=== PATIENT | female | born 1995 | race Caucasian/White ===

== ENCOUNTER → 2019-07-08 | Outpatient (CLI) | payer BC, SELFPAY | PROVIDERS: Family Provider Family Medicine; Visit Provider Family Medicine | DX: Z34.82 Encounter for supervision of other normal pregnancy, second trimester (principal) | CPT/HCPCS: 76805 ==

== ENCOUNTER 2019-07-17 13:17 | Outpatient (CLI) | payer BC, SELFPAY ==
--- NOTE | 2019-07-17 13:20 | MR_ITS ---
WS: [id number] MRI HEAD WITHOUT CONTRAST WITH ATTENTION TO THE INTERNAL AUDITORY CANALS TECHNIQUE: Sagittal T1, T2 axial, T2 axial flair, axial susceptibility weighted imaging, axial diffus ion weighted images, and coronal T2 images were obtained. Pre T1 axial and coronal images. ADC and FS PGR images. Axial fiesta imaging. CLINICAL INFORMATION: ENCOUNTER FOR EXAM OF EARS AND HEARING W/O ABNORMAL FINDINGS COMPARISON: None. FINDINGS: Images in the frontal lobes are degraded due to dental artifact. No evidence of restricted diffusion to suggest acute ischemia. Ventricular system and basal cisterns are patent. No suspicious intracrani al signal abnormalities. Normal krause-white differentiation. Normal posterior fossa. Normal vascular f low voids at the skull base. No extra axial fluid collections. Paranasal sinuses and mastoid air cell s appear well aerated. No hemosiderin on susceptibly weighted images. Proximal 7th and 8th cranial nerves are normal in appearance. Normal trigeminal nerve root entry zone s. Temporal lobes and hippocampal formations appear normal. Normal optic chiasm and pituitary infundi bulum. Normal sella. MR/MR iac's wo con [id number] IMPRESSION: 1. No evidence of restricted diffusion to suggest acute ischemia. 2. No suspicious intracranial signal abnormalities. Normal krause-white differen tiation. 3. Proximal 7th and 8th cranial nerves are normal in appearance. No evidence o f IAC or CP angle mass. Normal trigeminal nerve root entry zones. 4. Mastoid air cells and paranasal sinuses are well aerated.
== END 2019-07-17 13:18 | disposition home or self-care (01) ==
LOC: RADSHAW 13:17
PROVIDERS: Family Provider Family Medicine; PCP Family Medicine; Visit Provider Specialist
DX: Z01.10 Encounter for examination of ears and hearing without abnormal findings (principal); R42 Dizziness and giddiness
CPT/HCPCS: 70551

== ENCOUNTER 2019-10-30 12:50 | Outpatient (CLI) | payer BC, SELFPAY ==
--- NOTE | 2019-10-30 | US_ITS ---
WS: [id number] LIMITED OBSTETRICAL ULTRASOUND HISTORY: SMALL FOR GESTATIONAL AGE COMPARISON: 07/08/2019, 04/19/2019 Presentation: Cephalic. Cervix: Obscured by the head. Placenta: Fundal and RIGHT with no previa or abruption. Grade: 2 HEART: FHR of 153 BPM. measurements: BPD = 8.3 cm = 33w4d HC = 31.2 cm = 34w6d AC = 31.1 cm = 35w0d FL = 6.8 cm = 35w1d DORON: 17.0 cm EFW: 2539 g; 69th %. AGA by ultrasound: 34w5d DONNA by ultrasound: 12/06/2019 Measurements are internally concordant. Appropriate growth since the first trimester ultrasound. No g rowth asymmetry. US/US OB limited [id number] IMPRESSION: 1. Single intrauterine gestation of 34 weeks 5 days with an EDC of 12/06/2019. Appropriate growth since the first trimester ultrasound. No growth asymmetry of any significance. 2. Estimated weight at the 69th percentile. 3. Normal amniotic fluid. 4. Grade 2 placenta.
== END 2019-10-30 12:51 | disposition home or self-care (01) ==
LOC: RADWPI 12:54
PROVIDERS: Family Provider Family Medicine; PCP Family Medicine; Visit Provider Family Medicine
DX: Z36.4 Encounter for antenatal screening for fetal growth retardation (principal); Z3A.34 34 weeks gestation of pregnancy
CPT/HCPCS: 76815

== ENCOUNTER 2019-11-27 15:10 | Outpatient (CLI) | payer BC, SELFPAY ==
--- NOTE | 2019-11-27 15:16 | US_ITS ---
WS: [id number] ULTRASOUND OB LIMITED TECHNIQUE: Limited ultrasound examination of the fetus. CLINICAL INFORMATION: SMALL FOR AGE; PT HAS BEEN IN ER WAITING AREA; WAS ON TIME COMPARISON: October 30, 2019 FINDINGS: Single interuterine gestation. Placental location is right fundal. Placenta grade: 2 heart rate 153 BPM. DORON 6.8 cm less than the 5th percentile AGA by ultrasound 36 weeks 3 days Estimated delivery by ultrasound December 22, 2019 Biophysical profile 6 out of 8. breathin movement: 2 tone: 2 Amniotic fluid: 2 Impression 1. BPP 6 out of 8. Breathing not visualized. 2. growth parameters at the lower end of the range less than the 10th percentile. Fetus small for dates. 3. weight 6 lbs. 4 oz. 4. Placenta grade 2 5. DORON less than the 5th percentile
--- NOTE | 2019-11-28 15:23 | PM.HP ---
Providers/Chief Complaint Primary Care Provider: Benson Montes MD Chief Complaint: History of Present Illness Scott Mackenzie is a 24 year old at 38.4 weeks gestation by 6-week ultrasound inconsistent with LMP. Her is complicated by positive thyroglobulin antibodies, recent miscarriage, rubella nonimmune, vertigo. The patient was seen in my office on 11/26/2019 and was noted to be measuring small for gestational age. For this reason an ultrasound was set up for further evaluation. She had an ultrasound on 11/27/2019 and was noted to have an DORON of 6 with a biophysical profile of 6/8 and growth measurements that were less than the 2nd percentile. When I was notified of this on 11/28/2019, I had the patient present to OB triage for further evaluation. A repeat biophysical profile was 8 out of 8 with an amniotic fluid level of 9. However the estimated weight continued to be measuring small with biparietal diameter less than the 2nd percentile, head circumference less than 2nd percentile, and abdominal circumference at the 4th percentile. These were all consistent with only 1 weeks growth in comparison to an ultrasound done on October 30, 2019. Due to this, there are concerns for intrauterine growth restriction and I discussed this with the patient and her who are in agreement to proceed with induction of labor secondary to this. The patient was 2 cm dilated, 70% effaced and -1 station in the office on 11/26/2019. Patient currently denies chest pains, shortness of breath, fever, dyspnea, cough, nausea, vomiting, diarrhea, constipation, dysuria, vaginal bleeding, leakage of fluid, contractions. PFSH Acute PFSH: Medical History (Updated 11/28/19 @ 15:31 by Benson Montes MD) Thyroglobulin antibody positive Surgical History (Updated 11/28/19 @ 15:28 by Benson Montes MD) H/O breast augmentation Family History (Updated 11/28/19 @ 15:29 by Benson Montes MD) Mother Thyroid disease Social History (Updated 11/28/19 @ 15:30 by Benson Montes MD) Smoking and tobacco status: never smoked Alcohol intake: former Former alcohol use details: Occasional alcohol outside of Substance/Drug Use: never Physical Exam Narrative: EXAM NARRATIVE: General: Alert and oriented x3 Eyes: Pupils equal round and reactive to light and accommodation Mouth: Mucous membranes moist, pharynx non-erythematous Cardiac: Regular rate and rhythm without murmurs Lungs: Clear to auscultation bilaterally without wheezes, crackles or rhonchi Abdomen: Soft, non-tender, fundus measuring small for gestational age Extremities: Trace edema in the bilateral lower extremities A&P Assessment and plan (1) Intrauterine : Status: Acute (2) Intrauterine growth restriction (IUGR) affecting care of mother, third trimester, single gestation: Status: Acute Additional A&P Information I had a discussion with the patient regarding the findings that there is poor growth from comparison of ultrasound done on 10/29/2021 the ultrasound done on 11/28/2019. The growth is concerning for intrauterine growth restriction. Because of this and the patient's current gestational age of 38.4 weeks, we will proceed with induction of labor with IV Pitocin. I discussed with the patient and her regarding the possible benefits versus risks of proceeding with induction versus and they are in agreement with induction of labor at this time. All questions were answered. heart tones are currently in the mid 150s with moderate variability and good accelerations with a category 1 tracing.. The patient is having occasional contractions that are not regular. The patient is GBS negative. The patient will be started on IV Pitocin for induction. She may have a laboring epidural once she reaches 3 cm dilation. Proceed with routine care. Attestations Medical Necessity Statement*: The patient will be here for greater than 2 midnights due to routine intrapartum and management of labor and delivery. Coding Level of Care Code Acute Installer Interior Assemblies for Navin Peck Diagnoses Intrauterine Z34.90 Intrauterine growth restriction (IUGR) affecting care of mother, third trimester, single gestation O36.5930
== END 2019-11-27 15:11 | disposition home or self-care (01) ==
LOC: RAD 15:13
PROVIDERS: PCP Family Medicine; Visit Provider Family Medicine
DX: Z36.4 Encounter for antenatal screening for fetal growth retardation (principal); Z3A.36 36 weeks gestation of pregnancy; O36.5930 Maternal care for other known or suspected poor fetal growth, third trimester, not applicable or unspecified
CPT/HCPCS: 12345; 76816; 76819

== ENCOUNTER 2019-11-28 13:21 | Inpatient (IN) | payer BC, SELFPAY ==
[2019-11-28] VITALS (62 sets, daily range): BP systolic 0–149; BP diastolic 0–105; PULSE 72–102; RESP 18; TEMP 36.6–37.1; O2SAT 90–98; BMI 25.4
--- NOTE | 2019-11-28 13:27 | US_ITS ---
WS: [id number] ULTRASOUND OB LIMITED TECHNIQUE: Limited ultrasound examination of the fetus. CLINICAL INFORMATION: no growth, movement COMPARISON: None. FINDINGS: Single interuterine gestation. Placental location is right fundal. Placenta grade: 2 heart rate 144 BPM. DORON 9.6 cm greater than the 5th percentile for gestational age Biophysical profile 8 out of 8. breathin movement: 2 tone: 2 Amniotic fluid: 2 IMPRESSION 1. Normal biophysical profile 8 out of 8 2. DORON greater than the 5th percentile for gestational age 3. Fetus small for dates.
[2019-11-28] MEDS: dextrose 5%-lactated ringers 1,000 ML 125 ML IV (15:43)
[2019-11-28] MEDS: oxytocin 30 UNIT/500 ML BAG 4 UNIT IV (15:44)
[2019-11-28 16:01] LABS: Basophils # 0.1 10^3/uL (0.0-0.1); Basophils % 0.5 %; Eosinophils # 0.1 10^3/uL (0.0-0.8); Eosinophils % 0.9 %; Hematocrit 41.9 % (37.0-47.0); Hemoglobin 14.2 g/dL (11.5-15.3); Lymphocytes # 1.8 10^3/uL (0.8-4.8); Lymphocytes % 16.8 %; Mean Corpuscular HGB Conc 33.9 g/dL (30.0-36.0); Mean Corpuscular Hemoglobin 30.2 pg (28.0-34.0); Mean Corpuscular Volume 89.1 fL (81-99); Monocytes # 0.7 10^3/uL (0.2-0.9); Monocytes % 6.8 %; Neutrophils # 7.9 10^3/uL (1.8-7.7); Nucleated Red Blood Cells % 0 %; Platelet Count 263 10^3/cmm (130-400); Red Cell Distribution Width 12.7 % (12.1-15.1); White Blood Count 10.7 10^3/uL (4.0-10.0)
[2019-11-28] MEDS: lactated ringers 1,000 ML 999 ML IV (19:20)
--- NOTE | 2019-11-28 20:20 | ANES.PREANE2 ---
Pre-Anesthetic Assessment Pre-Anesthetic Assessment: Height/Weight: Height 1.68 m Weight 71.668 kg Temp Pulse BP Pulse Ox 98.8 F 88 133/75 90 11/28/19 17:00 11/28/19 20:48 11/28/19 20:48 11/28/19 20:47 Preop Diagnosis: IUP Familial anesthetic complications: denies Was Beta Prateek taken within 24 hours: N/A Social: Social History: No alcohol and No tobacco Exam: Pre-Anes Outpt Exam: alert, oriented x 3, clear to auscultation bilaterally and regular rate & rhythm Airway: Submandibular: WNL Cervical ROM: WNL MP: 1 History/ROS: No significant history except as noted Pulmonary: Pulmonary: None reported CV/HEM: CV/HEM: HTN (PIH) : : None reported Hepatic: Hepatic: None reported GI: GI: None reported Metabolic: Metabolic: None reported Musc/skel: Musc/skel: None reported Neuropsych: Neuropsych: None reported Anesthetic Plan: ASA status: 1 Anesthesia: Anesthesia Evaluation Risk of > 500 ml blood loss (7ml/kg in children): No Meds/Allergies Current Medications: Current Medications Generic Name Dose Route Start Last Admin Trade Name Freq PRN Reason Stop Dose Admin Dextrose/Lactated Ringer's 1,000 mls @ 125 m ls/hr 11/28/19 15:00 11/28/19 15:43 Dextrose 5%-Lact ated Ringers IV 125 mls/hr .Q8H ROSA Administration Oxytocin 30 unit in 500 ml s @ 4 mls/hr 11/28/19 15:00 11/28/19 16:45 Pitocin IV 12 milliunit/min .Q24H ROSA 12 mls/hr Titration Protocol 4 MILLIUNIT/MIN PFSH Anesthesia PFSH: Medical History (Updated 11/28/19 @ 15:31 by Benson Montes MD) Thyroglobulin antibody positive Surgical History (Updated 11/28/19 @ 15:28 by Benson Montes MD) H/O breast augmentation Family History (Updated 11/28/19 @ 15:29 by Benson Montes MD) Mother Thyroid disease Social History (Updated 11/28/19 @ 15:30 by Benson Montes MD) Smoking and tobacco status: never smoked Alcohol intake: former Former alcohol use details: Occasional alcohol outside of Substance/Drug Use: never Female Reproductive History: : 2 Data Anesthesia CBC & Chem 7: 11/28/19 15:25 Other Labs: Laboratory Results - last 48 hr 11/28/19 15:25 WBC 10.7 H RBC 4.70 Hgb 14.2 Hct 41.9 MCV 89.1 MCH 30.2 MCHC 33.9 RDW 12.7 Plt Count 263 MPV 10.0 Neut % (Auto) 74.0 Lymph % (Auto) 16.8 Collin % (Auto) 6.8 Eos % (Auto) 0.9 Baso % (Auto) 0.5 Neut # (Auto) 7.9 H Lymph # (Auto) 1.8 Collin # (Auto) 0.7 Eos # (Auto) 0.1 Baso # (Auto) 0.1 Nucleated RBC % (auto) 0 Nucleated RBCs # 0.0 Cardiac Studies: No Data to Display
--- NOTE | 2019-11-28 20:53 | ANES.PROC ---
Anesthesia Procedures Procedure/Date: 11/28/19 Epidural: Time Out Performed: Yes Consents Signed: Procedure Consent Consent: requested by attending/covering physician Lumbar Level: L4-L5 Epidural position: sitting Epidural procedure: sterile prep of area, 1% lidocaine to numb the area, 18 g needle, neg for paresthesia, test dose given, 1.5% xylocaine 1:200k epi (4ml), placed PCEA, no systemic response, sterile dressing applied, L.U.D. no apparent complications and 0.2% Ropiavacaine @ mls/hr (13)
--- NOTE | 2019-11-28 22:38 | PM.DELIVERY ---
Delivery Note: Date of delivery: November 28, 2019 Pre-delivery diagnoses: 1. Intrauterine at 38.4 weeks gestation 2. Intrauterine growth restriction 3. Rubella nonimmune 4. Thyroglobulin antibodies positive Post-delivery diagnoses: 1. Intrauterine status post spontaneous vaginal delivery at 38.4 weeks gestation 2. Intrauterine growth restriction 3. Rubella nonimmune 4. Delivery of healthy infant female weighing 6 pound 7 ounces with Apgars of 6 and 9. 5. Intact placenta Procedure: Spontaneous vaginal delivery Op report anesthesia: Epidural Estimated blood loss (mL): 100 Findings: 1. Delivery of healthy infant female weighing 6 pounds 7 ounces with Apgars of 6 and 9 2. Intact placenta with central umbilical cord insertion site. Pre-Delivery Course: Scott Mackenzie is a 24 year old G2 now P1 status post spontaneous vaginal delivery at 38.4 weeks gestation by 6-week ultrasound inconsistent with LMP. Her was complicated by positive thyroglobulin antibodies, recent miscarriage, rubella nonimmune, vertigo. The patient was seen in my office on 11/26/2019 and was noted to be measuring small for gestational age. For this reason an ultrasound was set up for further evaluation. She had an ultrasound on 11/27/2019 and was noted to have an DORON of 6 with a biophysical profile of 6/8 and growth measurements that were less than the 2nd percentile. When I was notified of this on 11/28/2019, I had the patient present to OB triage for further evaluation. A repeat biophysical profile was 8 out of 8 with an amniotic fluid level of 9. However the estimated weight continued to be measuring small with biparietal diameter less than the 2nd percentile, head circumference less than 2nd percentile, and abdominal circumference at the 4th percentile. These were all consistent with only 1 weeks growth in comparison to an ultrasound done on October 30, 2019. Due to this, there were concerns for intrauterine growth restriction and I discussed this with the patient and her who were in agreement to proceed with induction of labor secondary to this. The patient was 2 cm dilated, 70% effaced and -1 station in the office on 11/26/2019. The patient was started on IV Pitocin at approximately 1600 on 11/28/2019. She responded well and had regular contractions. SROM took place at 1840 on 11/28/2019. She was 2 cm at that time. The patient continued to contract and made good cervical change and was complete by 2121 on 11/28/2019. Delivery: The patient began pushing at 2121 on 11/28/2019. The patient pushed very well and the descended well. The delivered in the OA position at 0 on 11/28/2019. A nuchal cord was present, but tight and could not be reduced prior to delivery of the . The left shoulder was the anterior shoulder and it delivered with ease. The rest of the infant delivered without complication. The 's mouth and nose were bulb suctioned by myself. The initially had poor tone, however after stimulation began to cry. The cord was clamped by myself after approximately 30 seconds and cut by the infant's father. The infant was beginning to cry well at this time. Cord blood was obtained. The cord was then drained of further blood and traction was placed on the umbilical cord. The placenta delivered without complication at 2203 on 11/28/2019. The placenta was noted to be intact with a central umbilical cord insertion site. The umbilical cord had very few twists in it and very little Worthon's jelly. The uterus was then massaged and IV Pitocin was bolused. The uterus was firm and midline and there was very little bleeding. The cervix was inspected and there were no lacerations. The vaginal wall was inspected and a first-degree laceration on the left labia was noted. Because it was bleeding, this was sutured using 3-0 Vicryl in a running fashion. No lidocaine was necessary as the epidural provided adequate anesthesia. Small abrasions of the right labia and the perineum were noted. These did not require suturing. The rectum was inspected digitally and no sutures were noted. Currently both the patient and infant are doing well. A&P Assessment and plan (1) Intrauterine : Status: Acute (2) Intrauterine growth restriction (IUGR) affecting care of mother, third trimester, single gestation: Status: Acute Coding Level of Care Code Acute Lithographic Press Operator for Chg Fwd Diagnoses Intrauterine Z34.90 Intrauterine growth restriction (IUGR) affecting care of mother, third trimester, single gestation O36.5930
[2019-11-29] VITALS (17 sets, daily range): BP systolic 0–147; BP diastolic 0–87; PULSE 72–101; RESP 16–18; TEMP 36.6–36.9; O2SAT 96–98
[2019-11-29] MEDS: benzocaine-menthol 78 gm Canister 1 SPRAY TOPICAL (05:08)
[2019-11-29] MEDS: prenatal vitamin Capsule 1 CAP PO (10:09)
[2019-11-29] MEDS: docusate sodium 100 mg Capsule PO ×2 (10:10→17:56)
[2019-11-29 11:13] LABS: Hematocrit 38.5 % (37.0-47.0); Hemoglobin 12.9 g/dL (11.5-15.3); Mean Corpuscular HGB Conc 33.5 g/dL (30.0-36.0); Mean Corpuscular Hemoglobin 30.1 pg (28.0-34.0); Mean Corpuscular Volume 89.7 fL (81-99); Mean Platelet Volume 9.8 fL (7.4-10.4); Platelet Count 228 10^3/cmm (130-400); Red Blood Count 4.29 10^6/uL (4.1-5.3); Red Cell Distribution Width 12.9 % (12.1-15.1); White Blood Count 13.7 10^3/uL (4.0-10.0)
--- NOTE | 2019-11-29 12:24 | P.PN_ITS ---
Subjective Subjective: Interval history: The patient is doing well today. She is ambulating, voiding, passing gas and tolerating food by mouth. Her bleeding is decreasing well. She is breast-feeding and things are going well so far. Vitals/I&O/Wt Last Vital Signs Temp 98.0 F 11/29/19 06:30 Pulse 80 11/29/19 10:30 Resp 17 11/29/19 10:30 BP 110/65 11/29/19 10:30 Pulse Ox 98 11/29/19 10:30 11/28/19 11/29/19 11/29/19 22:59 06:59 14:59 Intake Total 1118.184 / 1118.184 409.716 / 1527.900 Output Total 1300 / 1300 Balance 1118.184 / 1118.184 -890.284 / 227.900 Weight last 48 hrs Weight 158 lb Physical Exam Narrative: EXAM NARRATIVE: General: Alert and oriented x3 Cardiac: Regular rate and rhythm without murmurs Lungs: Clear to auscultation bilaterally without wheezes, crackles or rhonchi Abdomen: Soft, mild tenderness over the uterus, fundus is firm and 4 cm below the umbilicus. Extremities: Trace edema in the bilateral lower extremities Urinary Catheter Management^: Engle: Cath Placed During This Visit: yes, but has since been removed by the nurse Reason for Continuing Indwelling Catheter: Other Urinary Catheter Date of Insertion: 11/28/19 Urinary Catheter Time of Insertion: 20:55 Date Urinary Catheter Removed: 11/28/19 Time Urinary Catheter Discontinued: 21:20 Data : 11/29/19 10:40 A&P Additional A&P Information Patient is doing well at this time. Her bleeding is decreasing well. Her pain is well controlled. She is ambulating, voiding, and tolerating food by mouth. We will plan to continue with routine care at this time. If she continues to do well we will plan for discharge home tomorrow. Routine instructions were given. All questions were answered. Attestations Medical Necessity Statement*: Patient continues need inpatient care she recovers after a vaginal delivery. Likely discharge home tomorrow. Coding Level of Care Code Acute Woodworking Bench Carpenter for Navin Peck
[2019-11-30] MEDS: prenatal vitamin Capsule 1 CAP PO (08:46)
[2019-11-30] MEDS: docusate sodium 100 mg Capsule PO (08:46)
--- NOTE | 2019-11-30 09:16 | P.DS_ITS ---
Discharge Providers Date of Admission: 11/28/19 13:21 Date of Discharge: November 30, 2019 Attending Provider at Admission: Benson Montes MD Attending Provider at Discharge: Benson Montes MD Primary Care Provider: Benson Montes MD Diagnoses at Discharge Discharge Diagnosis (1) Intrauterine : Status: Acute (2) Intrauterine growth restriction (IUGR) affecting care of mother, third trim jeff, single gestation: Status: Acute Other Information Additional DC diagnoses/information: 1. Intrauterine status post spontaneous vaginal delivery at 38.4 weeks gestation 2. Intrauterine growth restriction 3. Rubella nonimmune 4. Delivery of healthy infant female weighing 6 pound 7 ounces with Apgars of 6 and 9. 5. Intact placenta Hospital Course Hospital Course: Scott Mackenzie is a 24 year old G2 now P1 status post spontaneous vaginal delivery at 38.4 weeks gestation by 6-week ultrasound inconsistent with LMP. Her was complicated by positive thyroglobulin antibodies, recent miscarriage, rubella nonimmune, vertigo. The patient was seen in my office on 11/26/2019 and was noted to be measuring small for gestational age. For this reason an ultrasound was set up for further evaluation. She had an ultrasound on 11/27/2019 and was noted to have an DORON of 6 with a biophysical profile of 6/8 and growth measurements that were less than the 2nd percentile. When I was notified of this on 11/28/2019, I had the patient present to OB triage for further evaluation. A repeat biophysical profile was 8 out of 8 with an amniotic fluid level of 9. However the estimated weight continued to be measuring small with biparietal diameter less than the 2nd percentile, head circumference less than 2nd percentile, and abdominal circumference at the 4th percentile. These were all consistent with only 1 weeks growth in comparison to an ultrasound done on October 30, 2019. Due to this, there were concerns for intrauterine growth restriction and I discussed this with the patient and her who were in agreement to proceed with induction of labor secondary to this. The patient was 2 cm dilated, 70% effaced and -1 station in the office on 11/26/2019. The patient was started on IV Pitocin at approximately 1600 on 11/28/2019. She responded well and had regular contractions. SROM took place at 1840 on 11/28/2019. She was 2 cm at that time. The patient continued to contract and made good cervical change and was complete by 2121 on 11/28/2019. Delivery: The patient began pushing at 2121 on 11/28/2019. The patient pushed very well and the infant descended well. The delivered in the OA position at 2199 on 11/28/2019. A nuchal cord was present, but tight and could not be reduced prior to delivery of the infant. The left shoulder was the ante rior shoulder and it delivered with ease. The rest of the infant delivered without complication. The infant's mouth and nose were bulb suctioned by myself. The infant initially had poor tone, however after stimulation began to cry. The cord was clamped by myself after approximately 30 seconds and cut by the 's father. The infant was beginning to cry well at this time. Cord blood was obtained. The cord was then drained of further blood and traction was placed on the umbilical cord. The placenta delivered without complication at 2203 on 11/28/2019. The placenta was noted to be intact with a central umbilical cord insertion site. The umbilical cord had very few twists in it and very little Worthon's jelly. The uterus was then massaged and IV Pitocin was bolused. The uterus was firm and midline and there was very little bleeding. The cervix was inspected and there were no lacerations. The vaginal wall was inspected and a first-degree laceration on the left labia was noted. Because it was bleeding, this was sutured using 3-0 Vicryl in a running fashion. No lidocaine was necessary as the epidural provided adequate anesthesia. Small abrasions of the right labia and the perineum were noted. These did not require suturing. The rectum was inspected digitally and no sutures were noted. Currently both the patient and are doing well. the patient is done well without complications. Her bleeding has decreased well. Her pain is been well controlled with Motrin alone. The patient's been able to ambulate, void, pass gas and tolerate food by mouth. Routine instructions were given. The patient is in agreement with discharge home at this time. Physical Exam Narrative: EXAM NARRATIVE: General: Alert and oriented x3 Cardiac: Regular rate and rhythm without murmurs Lungs: Clear to auscultation bilaterally without wheezes, crackles or rhonchi Abdomen: Soft, mild tenderness over the uterus, fundus is firm and 4 cm below the umbilicus. Extremities: Trace edema in the bilateral lower extremities Urinary Catheter Management^: [place]: Cath Placed During This Visit: yes, but has since been removed by the nurse Reason for Continuing Indwelling Catheter: Other Urinary Catheter Date of Insertion: 11/28/19 Urinary Catheter Time of Insertion: 20:55 Date Urinary Catheter Removed: 11/28/19 Time Urinary Catheter Discontinued: 21:20 Discharge Data Data Completed and Pending: Completed Studies During Hospitalization Category Date Time Status US OB BPP w o NST 72473 Stat Ultrasound 11/28/19 13:27 Completed Labs from last 24 hours 11/29/19 10:40 WBC 13.7 H RBC 4.29 Hgb 12.9 Hct 38.5 MCV 89.7 MCH 30.1 MCHC 33.5 RDW 12.9 Plt Count 228 MPV 9.8 Vitals: Last Vital Signs Temp 98.3 F 11/29/19 22:41 Pulse 101 H 11/29/19 22:41 Resp 17 11/29/19 22:41 BP 111/75 11/29/19 22:41 Pulse Ox 97 11/29/19 22:41 Discharge Plan Discharge Patient Disposition: Home, Self-Care Condition: Good Prescriptions: New -U 106.5-1 mg Capsule 1 cap PO DAILY Qty: 30 RF: 3 ibuprofen 800 mg Tablet 800 mg PO TID Qty: 60 RF: 0 ferrous sulfate 325 mg (65 mg iron) tablet 325 mg PO DAILY Qty: 30 RF: 0 Discharge Orders: Discharge Order (Routine); Ordered 11/30/19 Ordered By: Benson Montes Referrals: Benson Montes MD [Primary Care Provider] - 01/09/20 12:30 pm (Mom's appointment has been made and is scheduled on 01/09/2020 at 12:[address] Montes.) Discharge Diet: Advance as tolerated Discharge Activity: Resume usual activity and Limit activity as instructed Patient Instructions: Vitamins (By mouth), OB Discharge Report, OB Food/Drug Interaction Guide, OB Proud Parent Packet, OB Vaginal Deliveries Activity Restrictions/Additional Instructions: Nothing per vagina for 6 weeks. If you have any concerns prior to your 6-week appointment, please call [facility] for further instruction. Discharge Attestations Time Spent in Discharge Care*: greater than 30 min Quality Metrics Clinical Quality Measures During this hospital stay, did patient experience: None Coding Level of Care Code Acute French Folder for Chg Fwd Diagnoses Intrauterine Z34.90 Intrauterine growth restriction (IUGR) affecting care of mother, third trimester, single gestation O36.5930
[2019-11-30 10:00] VITALS: BP 108/72; PULSE 89; RESP 16; TEMP 36.4; O2SAT 97
[2019-11-30] MEDS: measles,mumps,rubella pf Vial (w/diluent) 0.5 ML SUBCUT (11:09)
[2019-11-30 12:51] VITALS: BP 115/78; PULSE 90; RESP 18; TEMP 36.9
== END 2019-11-30 11:20 | disposition home or self-care (01) | DRG 807 ==
PROVIDERS: Admitting Provider Family Medicine; PCP Family Medicine; Visit Provider Family Medicine
DX: O36.5930 Maternal care for other known or suspected poor fetal growth, third trimester, not applicable or unspecified (principal); Z37.0 Single live birth; Z3A.38 38 weeks gestation of pregnancy; O69.81X0 Labor and delivery complicated by cord around neck, without compression, not applicable or unspecified; O70.0 First degree perineal laceration during delivery
CPT/HCPCS: 12345; 36415; 51702; 59025; 59409; 76819; 85025; 85027; 90707; 96372; 99211; G0379; J2795

== ENCOUNTER 2020-09-30 15:50 | Outpatient (CLI) | payer MEDICAID, SELFPAY ==
--- NOTE | 2020-09-30 16:03 | USR_ITS ---
PROCEDURE INFORMATION: Exam: US First Trimester, Transabdominal Exam date and time: 09/30/2020 4:08 PM Age: 25 years old Clinical indication: Screening exam; Routine US, uterus; Additional info: Supervision, normal , multiparous TECHNIQUE: Imaging protocol: Real-time transabdominal obstetrical ultrasound of the maternal pelvis and a first trimester , less than 14 weeks 0 days, with image documentation. COMPARISON: US OB BPP wo NST [id number] 11/28/2019 1:50 PM FINDINGS: Gestation: Single live intrauterine gestation. Gestational sac size appears unremarkable. Yolk sac size and morphology is normal. Embryonic/ heart rate: heart rate 167 bpm. Placenta: Negative for subchorionic hemorrhage. Amniotic fluid: Subjectively adequate amniotic fluid volume. BIOMETRY: Gestational age (AUA): Estimated gestational age based on current ultrasound biometry is 9 weeks, 3 days. Estimated due date (AUA): Estimated due date based on current ultrasound biometry is 05/02/2021. [place] length: [place] length pole 2.7 cm. MATERNAL: Uterus: Unremarkable. Cervix: Unremarkable. Right adnexa: Maternal right ovary 2.7 cm x 2.2 cm x 1.3 cm. Normal morphology. Normal vascularity. Negative for abnormal adnexal mass. Left adnexa: Maternal left ovary 4.2 cm x 2.1 cm x 1.9 cm. Normal morphology. Normal vascularity. Intraperitoneal space: Negative for pelvic fluid collection. US/US OB <= 14 weeks fetus [id number] IMPRESSION: Single live 1st trimester intrauterine gestation without abnormality seen at this time.
== END 2020-09-30 15:51 | disposition home or self-care (01) ==
LOC: US 15:53
PROVIDERS: PCP Family Medicine; Visit Provider Family Medicine
DX: Z34.81 Encounter for supervision of other normal pregnancy, first trimester (principal)
CPT/HCPCS: 76801

== ENCOUNTER 2020-12-14 07:10 | Outpatient (CLI) | payer MEDICAID, SELFPAY ==
--- NOTE | 2020-12-14 | US_ITS ---
WS: [id number] OBSTETRICAL ULTRASOUND COMPLETE HISTORY: ANATOMY SCAN COMPARISON: 09/30/2020 Single intrauterine gestation in breech presentation. Cervix is Closed and normal length. Cervical length is 4.9 cm. Normal amount of amniotic fluid surrounds the fetus. Placenta: Anterior and fundal. No previa or abruption. Placenta grade 1 Heart: 136 BPM. 4 chambers are identified. On the images submitted the LEFT ventricle is consistently larger than the RIGHT. May be positional. Limited evaluation of the outflow tracts. No abnormality i dentified. Anatomy: Intracranial structures and spine are normal. kidneys, stomach and urinary bladd er are unremarkable. Abdominal wall, three-vessel cord and cord insertion site are normal. 4 extremities are present. profile: Unremarkable. Gender: Male. measurements: BPD = 4.7 cm = 20w0d HC = 17.8 cm = 20w2d AC = 14.8 cm = 20w1d FL = 3.3 cm = 20w3d EFW: 342 g. Biometry is internally concordant. Appropriate growth since the first trimester ultrasound. AGA by ultrasound: 20w2d DONNA by ultrasound: 05/01/2021 US/US OB >= 14 weeks fetus [id number] IMPRESSION: 1. Single intrauterine gestation of 20w2d with an DONNA of 05/01/2021. 2. LEFT ventricle appears greater in size in expected as compared to the RIGHT ventricle. This may be positional and due to RIGHT ventricle not being obtaine d within the view. Recommend 2-3 week follow-up to reevaluate the heart size. O therwise anatomy is negative. 3. Appropriate growth since the prior ultrasound.
== END 2020-12-14 07:11 | disposition home or self-care (01) ==
PROVIDERS: PCP Family Medicine; Visit Provider Family Medicine
DX: Z34.82 Encounter for supervision of other normal pregnancy, second trimester; Z3A.20 20 weeks gestation of pregnancy
CPT/HCPCS: 76805

== ENCOUNTER 2021-01-05 15:07 | Outpatient (CLI) | payer MEDICAID, SELFPAY ==
--- NOTE | 2021-01-05 15:09 | US_ITS ---
WS: [id number] ULTRASOUND OB LIMITED TECHNIQUE: Limited ultrasound examination of the fetus. CLINICAL INFORMATION: FOLLOW UP OF HEART COMPARISON: December 14, 2020 FINDINGS: Limited examination today for follow-up cardiac anatomy Single interuterine gestation. Placental location is anterior fundal. Placenta grade: 1 heart rate 167 BPM. Normal four-chamber heart view with normal right and left ventricular outflow tracts seen today. Aort ic arch visualized[place] [id number] IMPRESSION: Normal four-chamber heart view with normal right and left ventricular outflow t racts seen today.
== END 2021-01-05 15:08 | disposition home or self-care (01) ==
PROVIDERS: PCP Family Medicine; Visit Provider Family Medicine
DX: Z34.80 Encounter for supervision of other normal pregnancy, unspecified trimester (principal)
CPT/HCPCS: 76816

== ENCOUNTER 2021-04-26 21:04 | Inpatient (IN) | payer MEDICAID, SELFPAY ==
[2021-04-26] VITALS (27 sets, daily range): BP systolic 121–149; BP diastolic 70–95; PULSE 86–104; RESP 16; TEMP 36.6–37; O2SAT 97–99; BMI 27.7
[2021-04-26] MEDS: lactated ringers 1,000 ML 999 ML IV (21:31)
[2021-04-26 21:32] LABS: Basophils # 0.1 10^3/uL (0.0-0.1); Basophils % 0.5 %; Eosinophils # 0.1 10^3/uL (0.0-0.8); Eosinophils % 0.9 %; Hemoglobin 13.5 g/dL (11.5-15.3); Lymphocytes # 2.1 10^3/uL (0.8-4.8); Lymphocytes % 19.4 %; Mean Corpuscular HGB Conc 33.8 g/dL (30.0-36.0); Mean Corpuscular Hemoglobin 29.9 pg (28.0-34.0); Mean Corpuscular Volume 88.5 fl (81-99); Mean Platelet Volume 10.2 fL (7.4-10.4); Monocytes # 0.6 10^3/uL (0.2-0.9); Monocytes % 5.6 %; Neutrophils % 72.9 %; Nucleated Red Blood Cells % 0 %; Platelet Count 236 10^3/cmm (130-400); Red Blood Count 4.52 10^6/uL (4.1-5.3); Red Cell Distribution Width 12.6 % (12.1-15.1); White Blood Count 10.7 10^3/uL (4.0-10.0)
--- NOTE | 2021-04-26 22:10 | P.HP_ITS ---
Providers/Chief Complaint Admitting Physician: Benson Montes MD Primary Care Provider: Benson Montes MD Chief Complaint: SROM History of Present Illness Scott Mackenzie is a 26 year old at 39.1 weeks gestation by 9-week ultrasound inconsistent with LMP. Her is complicated by positive thyroglobulin antibodies. The patient presents to labor and delivery triage secondary to spontaneous rupture membranes at approximately 8 PM on 04/26/2021. The patient was noted to be grossly ruptured in labor and delivery triage and admitted. The patient had been having intermittent contractions prior to this. The patient denies any chest pains, shortness of breath, nausea, vomiting, diarrhea, constipation, vaginal bleeding. Medications/Allergies Home Medications Medication Instructions Recorded Confirmed Last Taken Type ferrous sulfate 325 mg PO DAILY #30 tab 11/30/19 Unknown Rx ibuprofen 800 mg PO TID #60 tab 11/30/19 Unknown Rx multivit [id number] acid 1 cap PO DAILY #30 cap 11/30/19 Unknown Rx [-U] Allergies Allergy/AdvReac Type Severity Reaction Status Date / Time No Known Allergies Allergy Verified 11/29/19 03:08 PFSH Acute PFSH: Medical History (Updated 04/26/21 @ 22:14 by Benson Montes MD) Thyroglobulin antibody positive Surgical History H/O breast augmentation Family History Mother Thyroid disease Social History Smoking and tobacco status: never smoked Alcohol intake: former Former alcohol use details: Occasional alcohol outside of Female Reproductive History: : 3 Vitals/I&O/Wt Last Vital Signs Pulse 90 04/26/21 21:46 BP 149/95 04/26/21 21:46 Physical Exam Narrative: EXAM NARRATIVE: General: Alert and oriented x3 Eyes: Pupils equal round and reactive to light and accommodation Mouth: Mucous membranes moist, pharynx non-erythematous Cardiac: Regular rate and rhythm without murmurs Lungs: Clear to auscultation bilaterally without wheezes, crackles or rhonchi Abdomen: Soft, non-tender, fundus consistent with gestational age Extremities: Trace edema in the bilateral lower extremities Data : 04/26/21 21:15 A&P Assessment and plan (1) Intrauterine : Status: Acute Additional A&P Information The patient is doing well at this time. heart tones show a category 1 tracing. The patient is dayana every 3 to 4 minutes. The patient is GBS negative. She is 3 cm dilated upon presentation. We will get her set up for a laboring epidural for pain control. The patient seems to be making good change on her own, so we will hold off on further augmentation of labor for now. All questions were answered. Proceed with routine intrapartum care. Attestations Medical Necessity Statement*: The patient be here for greater than 2 midnights due to routine intrapartum and management of labor and delivery. Coding Level of Care Code Acute Manager Care for Navin Peck Diagnoses Intrauterine Z34.90
[2021-04-26] MEDS: dextrose 5%-lactated ringers 1,000 ML 125 ML IV (22:43)
--- NOTE | 2021-04-26 22:45 | P.ANESASSM_ITS ---
Pre-Anesthetic Assessment Pre-Anesthetic Assessment: Height/Weight: Height 5 ft 6 in Weight 78.018 kg Pulse Resp BP Pulse Ox 93 16 137/79 97 04/26/21 23:07 04/26/21 20:34 04/26/21 23:07 04/26/21 23:07 Preop Diagnosis: IUP Proposed Procedure: labor epidural Was Beta Prateek taken within 24 hours: N/A Was Clonidine taken within 24 hours: N/A Social: Social History: No alcohol and No tobacco Exam: Pre-Anes Outpt Exam: alert, oriented x 3, clear to auscultation bilaterally and regular rate & rhythm Airway: Submandibular: WNL Cervical ROM: WNL MP: 2 Dentition: Full History/ROS: No significant history except as noted Pulmonary: Pulmonary: None reported CV/HEM: CV/HEM: None reported : : None reported Hepatic: Hepatic: None reported GI: GI: None reported Metabolic: Metabolic: None reported Musc/skel: Musc/skel: None reported Neuropsych: Neuropsych: None reported Anesthetic Plan: ASA status: 1 Anesthesia: Anesthesia Evaluation and Regional (specify below) Risk of > 500 ml blood loss (7ml/kg in children): No Meds/Allergies Current Medications: Current Medications Generic Name Dose Route Start Last Admin Trade Name Freq PRN Reason Stop Dose Admin Lactated Ringer's 1,000 mls @ 999 m ls/hr 04/26/21 21:07 04/26/21 21:31 Lactated Ringers IV 999 mls/hr .Q1H1M PRN Administration See label comment s Dextrose/Lactated Ringer's 1,000 mls @ 125 m ls/hr 04/26/21 21:07 04/26/21 22:43 Dextrose 5%-Lact ated Ringers IV 125 mls/hr .Q8H PRN Administration labor PFSH Anesthesia PFSH: Medical History (Updated 04/26/21 @ 22:14 by Benson Montes MD) Thyroglobulin antibody positive Surgical History H/O breast augmentation Family History Mother Thyroid disease Social History Smoking and tobacco status: never smoked Alcohol intake: former Former alcohol use details: Occasional alcohol outside of Female Reproductive History: : 3 Data Anesthesia CBC & Chem 7: 04/26/21 21:15 Other Labs: Laboratory Results - last 48 hr 04/26/21 21:15 WBC 10.7 H RBC 4.52 Hgb 13.5 Hct 40.0 MCV 88.5 MCH 29.9 MCHC 33.8 RDW 12.6 Plt Count 236 MPV 10.2 Neut % (Auto) 72.9 Lymph % (Auto) 19.4 [place] % (Auto) 5.6 Eos % (Auto) 0.9 Baso % (Auto) 0.5 Neut # (Auto) 7.80 H Lymph # (Auto) 2.1 [place] # (Auto) 0.6 Eos # (Auto) 0.1 Baso # (Auto) 0.1 Nucleated RBC % (auto) 0 Nucleated RBCs # 0.0 Cardiac Studies: No Data to Display
--- NOTE | 2021-04-26 23:00 | PC.NURSE ---
at bedside, order received for straight cath at this time.
--- NOTE | 2021-04-26 23:17 | ANES.PROC ---
Anesthesia Procedures Procedure/Date: 04/26/21 Epidural: Time Out Performed: Yes Consents Signed: Procedure Consent Consent: requested by attending/covering physician Lumbar Level: L3-L4 Epidural position: sitting Epidural procedure: sterile prep of area, 1% lidocaine to numb the area, 18 g needle, negative for paresthesia passed, neg for paresthesia, test dose given, 1.5% xylocaine 1:200k epi (5ml), placed PCEA, no systemic response, sterile dressing applied, L.U.D. no apparent complications and 0.2% Ropiavacaine @ mls/hr (13)
[2021-04-26] MEDS: oxytocin 30 UNIT/500 ML BAG 600 UNIT IV (23:55)
[2021-04-27] VITALS (21 sets, daily range): BP systolic 107–139; BP diastolic 53–90; PULSE 80–102; RESP 14–16; TEMP 36–36.9; O2SAT 92
--- NOTE | 2021-04-27 00:11 | P.PCNOB_ITS ---
Delivery Note: Date of delivery: April 27, 2021 Pre-delivery diagnoses: 1. Intrauterine at 39.1 weeks gestation 2. Positive thyroglobulin antibodies Post-delivery diagnoses: 1. Intrauterine status post spontaneous vaginal delivery at 39.1 weeks gestation 2. Positive thyroglobulin antibodies 3. Delivery of healthy male weighing 6 pounds 15 ounces with Apgars of 8 and 9 Procedure: Spontaneous vaginal delivery Op report anesthesia: Epidural Estimated blood loss (mL): 75 Findings: 1. Delivery of healthy male weighing 6 pounds 15 ounces with Apgars of 8 9 2. Intact placenta with central umbilical cord insertion site. Pre-Delivery Course: The patient presented to labor delivery triage secondary to spontaneous rupture membranes at approximately 8 PM on 04/26/2021. The pat ient was 3 cm dilated upon presentation. She was dayana every 3 to 4 minutes on her own. She continued to make cervical change and received a laboring epidural. She was comfortable with epidural. There were no concerning heart tones and the patient was complete at 2334 on 04/26/2021. Delivery: The patient began pushing at 2338 on 04/26/2021. The patient pushed well and the delivered in the OA position at 2351 on 04/26/2021. The left shoulder was the anterior shoulder and delivered with steady downward pressure. The rest of the delivered without complication. The infant was crying upon delivery. The mouth and nose were bulb suctioned by myself. The infant was placed on the mother's chest where the nurses were waiting to care for him. The cord was then clamped after approximately 1 minute by myself. The cord was cut by the 's father. The cord blood was then obtained and the cord was then drained of blood. Traction was placed on the umbilical cord and fundal massage was carried out. The placenta delivered at 2355 on 04/26/2021 without complication. The placenta was noted to be intact with a central umbilical cord insertion site. The cervix was inspected and no lacerations were noted. Vaginal wall was inspected and no lacerations were noted. A small hematoma was present in the left lower vaginal wall. No suturing was needed. Current bleeding is very little. The uterus is firm. Currently both the mother and infant are doing well. A&P Assessment and plan (1) Intrauterine : Status: Acute (2) Spontaneous vaginal delivery: Status: Acute Coding Level of Care Code Acute Employment Law Specialist for Chg Fwd Diagnoses Intrauterine Z34.90 Spontaneous vaginal delivery O80
[2021-04-27] MEDS: benzocaine-menthol 78 gm Canister 1 SPRAY TOPICAL (04:06)
[2021-04-27] MEDS: lanolin oint 7 gm 1 APPLIC TOPICAL (04:06)
[2021-04-27] MEDS: docusate sodium 100 mg Capsule PO ×2 (08:17→21:46)
[2021-04-27] MEDS: prenatal vitamin Capsule 1 CAP PO (08:17)
[2021-04-27] MEDS: ibuprofen 800 mg tablet PO ×3 (08:17→21:45)
--- NOTE | 2021-04-27 08:52 | PM.PN ---
Subjective Subjective: Interval history: The patient is doing well she is ambulating, voiding, passing gas and tolerating food by mouth. She has no concerns at this time. Vitals/I&O/Wt Last Vital Signs Temp 96.9 F L 04/27/21 05:45 Pulse 81 04/27/21 08:04 Resp 14 04/27/21 05:45 BP 127/72 04/27/21 08:04 Pulse Ox 99 04/26/21 23:37 04/26/21 04/27/21 04/27/21 22:59 06:59 14:59 Intake Total 2211.983 / 2211.983 Output Total 650 / 650 Balance 1561.983 / 1561.983 Weight last 48 hrs Weight 172 lb Physical Exam Narrative: EXAM NARRATIVE: General: Alert and oriented x3 Cardiac: Regular rate and rhythm without murmurs Lungs: Clear to auscultation bilaterally without wheezes, crackles or rhonchi Abdomen: Soft, non-tender, fundus consistent with gestational age Extremities: +1 edema in the bilateral lower extremities Data : 04/27/21 13:45 A&P Additional A&P Information The patient is doing well status post spontaneous vaginal delivery. She is ambulating, voiding, passing gas and tolerating food by mouth. Her pain is well controlled. We will plan to discharge home tomorrow morning if she continues to do well. All questions were answered. Attestations Medical Necessity Statement*: The patient will be here for greater than 2 midnights intrapartum and management of labor and delivery. Coding Level of Care Code Acute Vice President Quality Improvement for Navin Peck
--- NOTE | 2021-04-27 09:39 | PC.NURSE ---
note Baby sleepy. Mom reports he has not fed since about 3 AM. Attempted to rouse him (he just had a circumcision). Still sleepy. Placed skin -to-skin with mom.
[2021-04-27 14:40] LABS: Hematocrit 36.2 % (37.0-47.0); Hemoglobin 12.6 g/dL (11.5-15.3); Mean Corpuscular HGB Conc 34.8 g/dL (30.0-36.0); Mean Corpuscular Hemoglobin 30.1 pg (28.0-34.0); Mean Corpuscular Volume 86.6 fl (81-99); Mean Platelet Volume 10.5 fL (7.4-10.4); Platelet Count 220 10^3/cmm (130-400); Red Blood Count 4.18 10^6/uL (4.1-5.3); Red Cell Distribution Width 12.7 % (12.1-15.1)
--- NOTE | 2021-04-27 22:24 | PC.NURSE ---
Patient filling out certificate.
[2021-04-28 04:18] VITALS: BP 123/71; PULSE 78
[2021-04-28 04:47] VITALS: BP 123/71; PULSE 82; RESP 15; O2SAT 98
[2021-04-28 07:27] VITALS: BP 128/86; PULSE 83
[2021-04-28 07:30] VITALS: RESP 16; TEMP 36.9
--- NOTE | 2021-04-28 07:47 | PM.DCS ---
Discharge Providers Date of Admission: 04/26/21 21:04 Date of Discharge: April 28, 2021 Attending Provider at Admission: Benson Montes MD Attending Provider at Discharge: Benson Montes MD Primary Care Provider: Benson Montes MD Diagnoses at Discharge Discharge Diagnosis (1) Intrauterine : Status: Resolved (2) Spontaneous vaginal delivery: Status: Resolved Other Information Additional DC diagnoses/information: 1. Intrauterine status post spontaneous vaginal delivery at 39.1 weeks gestation 2. Positive thyroglobulin antibodies 3. Delivery of healthy male weighing 6 pounds 15 ounces with Apgars of 8 and 9 Reason for Visit Reason for Visit: [facility] Hospital Course Hospital Course Pre-Delivery Course: The patient presented to labor delivery triage secondary to spontaneous rupture membranes at approximately 8 PM on 04/26/2021. The patient was 3 cm dilated upon presentation. She was dayana every 3 to 4 minutes on her own. She continued to make cervical change and received a laboring epidural. She was comfortable with epidural. There were no concerning heart tones and the patient was complete at 2334 on 04/26/2021. Delivery: The patient began pushing at 2338 on 04/26/2021. The patient pushed well and the infant delivered in the OA position at 2351 on 04/26/2021. The left shoulder was the anterior shoulder and delivered with steady downward pressure. The rest of the delivered without complication. The infant was crying upon delivery. The mouth and nose were bulb suctioned by myself. The was placed on the mother's chest where the nurses were waiting to care for him. The cord was then clamped after approximately 1 minute by myself. The cord was cut by the 's father. The cord blood was then obtained and the cord was then drained of blood. Traction was placed on the umbilical cord and fundal massage was carried out. The placenta delivered at 2355 on 04/26/2021 without complication. The placenta was noted to be intact with a central umbilical cord insertion site. The cervix was inspected and no lacerations were noted. Vaginal wall was inspected and no lacerations were noted. A small hematoma was present in the left lower vaginal wall. No suturing was needed. Current bleeding is very little. The uterus is firm. Currently both the mother and are doing well. : The patient has done well and is showing no signs of complications. She is ambulating, voiding, passing gas and tolerating food by mouth. Her bleeding is decreasing well. Routine post delivery instructions were discussed. All questions were answered. The patient and her significant other are in agreement with the current plan of care. Physical Exam Narrative: EXAM NARRATIVE: General: Alert and oriented x3 Cardiac: Regular rate and rhythm without murmurs Lungs: Clear to auscultation bilaterally without wheezes, crackles or rhonchi Abdomen: Soft, mild tenderness over the uterus, uterus is firm and 2 cm below the umbilicus no hepatosplenomegaly noted Extremities: +1 pitting edema in the bilateral lower extremities Discharge Data Data Completed and Pending: Labs from last 24 hours 04/27/21 13:45 WBC 13.0 H RBC 4.18 Hgb 12.6 Hct 36.2 L MCV 86.6 MCH 30.1 MCHC 34.8 RDW 12.7 Plt Count 220 MPV 10.5 H Vitals: Last Vital Signs Temp 98.5 F 04/27/21 21:53 Pulse 83 04/28/21 07:27 Resp 15 04/28/21 04:47 BP 128/86 04/28/21 07:27 Pulse Ox 98 04/28/21 04:47 Discharge Plan Discharge Patient Disposition: Home Condition: Good Prescriptions: Continued -U 106.5-1 mg Capsule 1 cap PO DAILY Qty: 30 RF: 3 ibuprofen 800 mg Tablet 800 mg PO TID Qty: 60 RF: 0 ferrous sulfate 325 mg (65 mg iron) tablet 325 mg PO DAILY Qty: 15 RF: 0 Discharge Orders: Discharge Order (Routine); Ordered 04/28/21 Ordered By: Benson Montes Referrals: Benson Montes MD [Primary Care Provider] - 6 Weeks (READ AND FOLLOW ALL OF YOUR HOME CARE INSTRUCTIONS. NOTIFY THE PHYSICIAN'S OFFICE OR THE OB DEPARTMENT WITH ANY QUESTIONS OR CONCERNS. YOU WILL HAVE A 6 WEEK CHECK UP ON 06/09/21 AT 1020.) Discharge Diet: Regular Discharge Activity: Limit activity as instructed Patient Instructions: Iron Supplements (By mouth), Vitamins (By mouth), and Breast Engorgement (GEN), How to Increase Your Milk Supply (GEN), Bleeding (GEN), Preeclampsia and Eclampsia After Delivery (GEN), Breast Care for the Mother (GEN), OB Discharge Report, OB Food/Drug Interaction Guide, Opioid Safety, OB Home Care, Abnormal Bleeding Activity Restrictions/Additional Instructions: Nothing per vagina for 6 weeks. Showers are recommended over baths for the first 6 weeks. Discharge Attestations Time Spent in Discharge Care*: greater than 30 min Quality Metrics Clinical Quality Measures During this hospital stay, did patient experience: None Coding Level of Care Code Acute Chg FW DC note Diagnoses Intrauterine Z34.90 Spontaneous vaginal delivery O80
--- NOTE | 2021-04-28 10:01 | PC.NURSE ---
note at [id number] Mom reports is going well. She has no concerns this morning.
[2021-04-28 11:16] VITALS: RESP 16; TEMP 36.9
== END 2021-04-28 09:30 | disposition home or self-care (01) | DRG 807 ==
LOC: OPOB 21:21 → OBGYN 21:21
PROVIDERS: Admitting Provider Family Medicine; PCP Family Medicine; Visit Provider Family Medicine
DX: O80 Encounter for full-term uncomplicated delivery (principal); Z37.0 Single live birth; Z3A.39 39 weeks gestation of pregnancy
CPT/HCPCS: 36415; 51702; 59025; 59409; 85025; 85027; 96374; 98960; 99211; J2795; J3010

== ENCOUNTER → 2022-03-22 12:37 | Outpatient (BNVA) | payer MEDICAID, SELFPAY | PROVIDERS: PCP Family Medicine; Visit Provider Family Medicine | DX: R00.2 Palpitations (principal) | CPT/HCPCS: 84439; 84443 ==

== ENCOUNTER → 2022-04-07 14:50 | Outpatient (BNVA) | payer MEDICAID, SELFPAY | PROVIDERS: PCP Family Medicine; Visit Provider Nurse Practitioner Family | DX: Z30.09 Encounter for other general counseling and advice on contraception (principal) | CPT/HCPCS: 81025 ==

== ENCOUNTER → 2022-05-27 14:15 | Outpatient (BNVA) | payer MEDICAID, SELFPAY | PROVIDERS: PCP Family Medicine; Visit Provider Nurse Practitioner Women's Health | DX: Z30.430 Encounter for insertion of intrauterine contraceptive device (principal); Z30.9 Encounter for contraceptive management, unspecified | CPT/HCPCS: 81025 ==

== ENCOUNTER → 2022-11-15 11:04 | Outpatient (BNVA) | payer MEDICAID, SELFPAY | PROVIDERS: PCP Family Medicine; Visit Provider Family Medicine | DX: Z51.81 Encounter for therapeutic drug level monitoring (principal); R61 Generalized hyperhidrosis; Z30.9 Encounter for contraceptive management, unspecified; L65.9 Nonscarring hair loss, unspecified | CPT/HCPCS: 80053; 84443; 85025; 86141 ==

== ENCOUNTER → 2023-02-08 08:38 | Outpatient (BNVA) | payer MEDICAID, SELFPAY | PROVIDERS: PCP Family Medicine; Visit Provider Clinical Nurse Specialist Adult Health | DX: R61 Generalized hyperhidrosis (principal) | CPT/HCPCS: 80048; 82306 ==

== ENCOUNTER → 2023-09-07 10:39 | Outpatient (BNVA) | payer MEDICAID, SELFPAY | PROVIDERS: PCP Family Medicine; Visit Provider Family Medicine | DX: F41.9 Anxiety disorder, unspecified (principal) | CPT/HCPCS: 84436; 84443; 84481 ==

== ENCOUNTER → 2023-09-12 14:26 | Outpatient (BNVA) | payer MEDICAID, SELFPAY | PROVIDERS: PCP Family Medicine; Visit Provider Nurse Practitioner Women's Health | DX: Z12.4 Encounter for screening for malignant neoplasm of cervix (principal); R61 Generalized hyperhidrosis; R53.83 Other fatigue; L65.9 Nonscarring hair loss, unspecified; R00.2 Palpitations | CPT/HCPCS: 82306; 84439; 85025; 87624 ==

== ENCOUNTER 2023-09-15 09:03 | Outpatient (CLI) | payer MEDICAID, SELFPAY ==
--- NOTE | 2023-09-15 09:32 | US_ITS ---
WS: [id number] Left breast ultrasound, 09/15/2023 Clinical Data: left breast lump with tenderness Comparison: None. Findings: In the 2 o'clock position of the left breast there are multiple small cysts. The largest cyst measure s 0.2 x 0.4 x 0.4 cm. No masses are seen. The breast shows mostly normal tissue. Impression: 1. Several small cysts in upper outer quadrant of the left breast at 2 o'clock position. 2. Recommend clinical follow-up. US/US breast LT limited* [id number] BIRADS: 2-Benign FOLLOW UP: See Report
== END 2023-09-15 09:04 | disposition home or self-care (01) ==
LOC: RAD 09:03
PROVIDERS: PCP Family Medicine; Visit Provider Clinical Nurse Specialist Adult Health
DX: N60.02 Solitary cyst of left breast (principal)
CPT/HCPCS: 76642

== ENCOUNTER → 2023-11-09 09:52 | Outpatient (BNVA) | payer MEDICAID, SELFPAY | PROVIDERS: PCP Family Medicine; Visit Provider Nurse Practitioner Women's Health | DX: R53.83 Other fatigue (principal) | CPT/HCPCS: 82607; 82746 ==

== ENCOUNTER 2023-11-22 06:59 | Outpatient (CLI) | payer MEDICAID, SELFPAY ==
--- NOTE | 2023-11-22 06:45 | US_ITS ---
WS: [id number] THYROID ULTRASOUND HISTORY: Z01.89 - Encounter for other specified special examinations COMPARISON: None available. Right lobe: 1.5 cm x 1.7 cm x 3.7 cm (w x ap x l). Volume: 4.6 cm3. Normal sized thyroid. There are several small benign cysts in the RIGHT thyroid. These are probably c olloid cyst. No solid mass or echogenic focus. No increased vascularity. Left lobe: 1.2 cm x 0.7 cm x 2.7 cm (w x ap x l). Volume: 1.0 cm3. Cystic nodule in the inferior pole measures 1.7 x 1.5 x 1.0 cm. No solid mass or nodule. Isthmus: 0.3 cm. No adenopathy. US/US thyroid [id number] IMPRESSION: 1. No solid thyroid mass. 2. Benign bilateral colloid cysts.
== END 2023-11-22 07:00 | disposition home or self-care (01) ==
LOC: RAD 06:59
PROVIDERS: PCP Family Medicine; Visit Provider Nurse Practitioner Women's Health
DX: Z01.89 Encounter for other specified special examinations (principal); E04.2 Nontoxic multinodular goiter
CPT/HCPCS: 76536

== ENCOUNTER → 2023-12-01 10:54 | Outpatient (BNVA) | payer MEDICAID, SELFPAY | PROVIDERS: PCP Family Medicine; Visit Provider Registered Nurse Neonatal Intensive Care | DX: R39.9 Unspecified symptoms and signs involving the genitourinary system (principal); N76.0 Acute vaginitis; B96.89 Other specified bacterial agents as the cause of diseases classified elsewhere | CPT/HCPCS: 81000; 87077; 87086; 87184 ==

== ENCOUNTER 2024-09-03 08:43 | Outpatient (CLI) | payer MEDICAID, SELFPAY ==
--- NOTE | 2024-09-03 08:45 | MR_ITS ---
WS: [id number] MRI BRAIN WITHOUT CONTRAST HISTORY: Frequent Headaches COMPARISON: 07/17/2019 TECHNIQUE: Diffusion imaging, multiplanar T1, T2 and FLAIR imaging obtained. No evidence for acute infarct or hemorrhage. Bhakta-white matter differentiation is normal. No remote or acute infarcts are volume loss. Ventricles and extra-axial spaces are normal. No inferior displacement of cerebellar tonsils. The sella turcica and pituitary gland are unremarkable. Dural venous sinuses and semin[place] of [place] demonstrate no abnormality on this unenhanced studies. Paranasal sinuses: Moderate mucoperiosteal thickening in the mastoid air cells with an air-fluid level in the LEFT maxillary sinus. Mild mucoperiosteal thickening in the frontal and ethmoid air cells and RIGHT sphenoid sinus. Mastoid air cells: Normal. Calvarium and scalp: Intact. MR/MR head wo con* [id number] IMPRESSION: 1. No acute intracranial hemorrhage or edema. No infarct. 2. Acute LEFT maxillary sinusitis. Additional chronic appearing mucoperiosteal disease in the ethmoid, LEFT sphenoid, RIGHT maxillary and ethmoid air cells. 3. Normal mastoid air cells. 4. No hydrocephalus.
== END 2024-09-03 08:44 | disposition home or self-care (01) ==
PROVIDERS: PCP Family Medicine; Visit Provider Family Medicine
DX: R51.9 Headache, unspecified (principal); J01.00 Acute maxillary sinusitis, unspecified; R93.0 Abnormal findings on diagnostic imaging of skull and head, not elsewhere classified
CPT/HCPCS: 70551

== ENCOUNTER → 2024-12-10 13:46 | Outpatient (BNVA) | payer MEDICAID, SELFPAY | PROVIDERS: PCP Family Medicine; Visit Provider Nurse Practitioner | DX: R39.9 Unspecified symptoms and signs involving the genitourinary system (principal) | CPT/HCPCS: 81000; 87086 ==

== ENCOUNTER → 2025-03-27 08:55 | Outpatient (BNVA) | payer MEDICAID, SELFPAY | PROVIDERS: PCP Family Medicine; Visit Provider Family Medicine | DX: Z01.89 Encounter for other specified special examinations (principal); R53.81 Other malaise; R53.83 Other fatigue | CPT/HCPCS: 84439; 84443 ==